=== PATIENT | male | born 1945 | race Two or more races ===

== ENCOUNTER 2019-05-02 02:24 | Inpatient (IN) | payer BC, OTHER ==
[~2019-05-02] VITALS: Ht 170.2 cm; Wt 89.4 kg
[2019-05-02] VITALS (7 sets, daily range): BP systolic 49–103; BP diastolic 26–50
--- NOTE | 2019-05-02 02:35 | NUR ---
BIB EMS C/O LOW O2 SAT, O2 SAT UPON ARRIVAL TO ER 95% RA/ RECEIVED PT AAOX4, REFUSED SALINE LOCK AT THIS TIME. PLACE PT ON CARDIAC MONITORING, CONTINUOUS POX. PENDING ER MD WYNNE.
--- NOTE | 2019-05-02 02:44 | NUR ---
ER MD AT BEDSIDE TO EVAL PT WITH ORDERS RECEIVED. NOTED PT HR 30'S-40'S, BP 67/47. PT AGREED TO SALINE LOCK AT THIS TIME. PT REMAINS PAIN FREE AT THIS TIME. WILL CONTINUE TO MONITOR PT CLOSELY.
[2019-05-02] MEDS ORDERED: IV NS 0.9% 500 ML BAG IV ONE ×2 (03:00→08:30)
[2019-05-02 03:11] LABS: BASOPHILS % (AUTO) 0.1 % (0.0-2.0); EOSINOPHILS % (AUTO) 0.1 % (0.0-6.0); HEMATOCRIT 22 % (39-51); HEMOGLOBIN 7.3 g/dL (13.5-17.5); LYMPHOCYTES # (AUTO) 0.3 /CMM (0.8-4.8); LYMPHOCYTES % (AUTO) 5.7 % (20.0-44.0); MEAN CORPUSCULAR HGB CONC 34 g/dl (31.0-36.0); MEAN CORPUSCULAR VOLUME 98 fL (80-96); MONOCYTES # (AUTO) 0.7 /CMM (0.1-1.30); MONOCYTES % (AUTO) 13.6 % (2.0-12.0); NEUTROPHILS # (AUTO) 3.9 /CMM (1.8-8.9); NEUTROPHILS % (AUTO) 80.5 % (43.0-81.0); PLATELET COUNT (AUTO) 174 /CMM (150-450); RED BLOOD CELL COUNT(AUTO) 2.22 MIL/uL (4.5-6.0); WHITE BLOOD COUNT (AUTO) 4.9 K/uL (4.3-11.0)
[2019-05-02 03:30] LABS: ALANINE AMINOTRANSFERASE 25 U/L (12-78); ALKALINE PHOSPHATASE 61 U/L (46-116); ASPARTATE AMINOTRANSFERASE 15 U/L (15-37); BILIRUBIN,DIRECT 0.1 mg/dL (0.0-0.2); BILIRUBIN,TOTAL 0.2 mg/dL (0.2-1.0); CALCIUM, SERUM 7.6 mg/dL (8.5-10.1); CARBON DIOXIDE 25 mmol/L (21-32); CHLORIDE 98 mmol/L (98-107); GLUCOSE 205 mg/dL (74-106); POTASSIUM 4.1 mmol/L (3.5-5.1); SODIUM SERUM 136 mmol/L (136-145); TOTAL PROTEIN, SERUM 4.2 g/dL (6.4-8.2)
[2019-05-02 03:31] LABS: ALBUMIN 1.3 g/dL (3.4-5.0); UREA NITROGEN, BLOOD 95 mg/dL (7-18)
--- NOTE | 2019-05-02 04:39 | NUR ---
PT AAOX4 NO ACUTE DISTRESS NOTED, RESP EVEN AND UNLABORED. PT REMAINS PAIN FREE AT THIS TIME. WILL CONTINUE TO MONITOR PT.
--- NOTE | 2019-05-02 06:05 | NUR ---
REPORT CALLED TO M/S ELDA OROSCO. WILL TRANSPORT PT TO ROOM 319-1.
--- NOTE | 2019-05-02 06:40 | NUR ---
TELE/RN ADMITTING NOTES: RECEIVED REPORT FROM ED ER NURSE. PATIENT ARRIVED TO THE UNIT AT 0640 VIA GURNEY UNDER ACLS PROTOCOL. A/OX4. VERBALLY RESPONSIVE AND ABLE TO MAKE NEEDS KNOWN. PALE LOOKING UPON ARRIVAL. BREATHING EVEN AND UNLABORED. IV PRESENT ON THE LEFT HAND 18G INTACT AND PATENT, FLUSHING WELL. NO OPEN WOUNDS. SKIN IS INTACT UPON ASSESSMENT. VITALS TAKEN BP:74/40. TEMP:97 O2 SAT OF 90. PLACED ON 2L OF OXYGEN VIA NC. ON TELE MONITOR WITH READING OF ST HR OF 118. NO COMPLAINS OF PAIN AT THIS TIME. ORIENTED TO UNIT AND STAFF. REFUSED SKIN ASSESSMENT. SAFETY MEASURES INITIATED. BED IN LOW, LOCKED POSITION WITH SR UP X2. PATIENT IS IN A CALM MOOD AND WANTS TO BE LEFT ALONE. PREFERS TO ANSWER QUESTIONS LATER. WILL ENDORSE TO MORNING SHIFT FOR NIVIA.
--- NOTE | 2019-05-02 07:09 | NUR ---
TELE/RN NOTES: EXPLAINED TO PT ABOUT ORDERS TO TRANSFUSE 1 UNIT PRBC. UNABLE TO OBTAIN CONSENT. PATIENT REFUSES BLOOD TRANSFUSION AND STATED "HE WANTS TO BE LEFT ALONE AND REST" WILL CONTINUE TO MONITOR.
--- NOTE | 2019-05-02 07:20 | NUR ---
TELE/RN CLOSING NOTES: REPORT GIVEN TO REMEDIOS FOR CONTINUITY OF CARE AND FURTHER ASSESSMENTS FOR ADMISSION.
--- NOTE | 2019-05-02 07:46 | NUR ---
ROTARY DRYER OPERATOR NOTES PATIENT RECEIVED RESTING INSIDE ROOM. SLEEPING, AROUSABLE THROUGH VERBAL AND TACTILE STIMULI. NO ACUTE DISTRESS. DENIES ANY PAIN OR DISCOMFORT. ADMITTED UNDER MEDICAL SUPERVISION OF DR RODRIGUEZ, AWARE OF PATIENT ARRIVAL. WITH ANTICIPATION FOR BLOOD TRANSFUSION 2 BUT PATIENT REFUSES TO GIVE CONSENT AT THIS TIME, RISKS AND BENEFITS EXPLAINED BUT TO NO AVAIL, PATIENT STRONGLY REFUSED. ON TELEMETRY, SCHOOL SECRETARY IN PLACE. ST 108. WILL COTNINUE TO MONITOR. BED LOCKED AND IN LOW POSITION. SIDE RAILS UP X 3. CALL LIGHT WITHIN EASY REACH
--- NOTE | 2019-05-02 08:10 | NUR ---
MS RN NOTES PATIENT WITH BLACK LIQUID BOWEL MOVEMENT. UNABLE TO OBTAIN SAMPLE AT THIS TIME BOWEL MOVEMENT ABSORBED BY DIAPER. DR RODRIGUEZ AWARE. WILL CONTINUE TO MONITOR
--- NOTE | 2019-05-02 08:14 | NUR ---
ASSEMBLER AND TESTER ELECTRONICS NOTES SEEN AND EXAMINED BY DR RODRIGUEZ. PATIENT AGREED TO HAVE BLOOD TRANSFUSION. VERIFIED INFORMED CONSENT OBTAINED BY MD FROM PATIENT AND WITNESSED BY STAFF. ALSO WITH NEW ORDER FROM DR RODRIGUEZ FOR NS 500 ML IV BOLUS X 1. ORDER NOTED AND CARRIED OUT. WILL CONTINUE TO MONITOR
[2019-05-02] MEDS ORDERED: ROSU40TA PO (08:17)
[2019-05-02] MEDS ORDERED: FINA5TAB11 PO (08:17)
[2019-05-02] MEDS ORDERED: INSU100V27 SQ (08:17)
[2019-05-02] MEDS ORDERED: INSU100I26 SQ (08:17)
[2019-05-02] MEDS ORDERED: QUET100T PO (08:17)
[2019-05-02] MEDS ORDERED: QUET200T PO (08:17)
[2019-05-02] MEDS ORDERED: PANT40TA2 PO (08:17)
[2019-05-02] MEDS ORDERED: NEBI5TAB8 PO (08:17)
[2019-05-02] MEDS ORDERED: ERGO500014 PO (08:17)
[2019-05-02] MEDS ORDERED: ARIP10TA9 PO (08:17)
[2019-05-02] MEDS ORDERED: PARO10TA86 PO (08:17)
[2019-05-02] MEDS ORDERED: TAMS-12 PO (08:17)
[2019-05-02] MEDS ORDERED: SENN-261 PO (08:17)
[2019-05-02] MEDS ORDERED: CALC667T2 PO (08:17)
[2019-05-02] MEDS ORDERED: FOLI0.8T2 PO (08:17)
[2019-05-02] MEDS ORDERED: ASPI-1169 PO (08:17)
--- NOTE | 2019-05-02 08:23 | NUR ---
JOINT YARNER/MED RECON MED-RECON UPDATED, LIST OBTAINED FROM [facility]. DR. RODRIGUEZ MADE AWARE WITH NEW ORDERS. PRIMARY NURSE AWARE.
[2019-05-02] MEDS ORDERED: BLOO-668 IN (08:30)
[2019-05-02 08:33] LABS: IRON, SERUM 24 ug/dl (50-175); TOTAL IRON BINDING CAPACITY 93 ug/dl (250-450)
[2019-05-02] MEDS ORDERED: TRANEXAMIC ACID 3,000 MG in SODIUM CHLORIDE IRRIG SOLUTION 70 ML IR ONE (09:00)
[2019-05-02] MEDS ORDERED: ASPIRIN 81 MG TAB.CHEW PO SCH (09:00)
[2019-05-02] MEDS: PIPERACILLIN /TAZOBACTAM 2.25 G in IV D5W 50 ML IV SCH ×2 (09:52→16:42)
[2019-05-02] MEDS: QUETIAPINE FUMARATE 100 MG TABLET PO SCH ×2 (10:03→21:28)
[2019-05-02] MEDS: ARIPIPRAZOLE 5 MG TABLET PO SCH (10:03)
[2019-05-02] MEDS: VIT B CMPLX 3/FA/VIT C/BIOTIN 1 TAB TABLET PO SCH (10:03)
[2019-05-02] MEDS: FINASTERIDE (5 MG) 5 MG TABLET PO SCH (10:04)
[2019-05-02] MEDS: PAROXETINE HCL 10 MG TABLET PO SCH ×2 (10:04→18:05)
[2019-05-02] MEDS: PANTOPRAZOLE 40 MG VIAL IV SCH (10:04)
--- NOTE | 2019-05-02 10:44 | NUR ---
MS RN NOTES DR RODRIGUEZ MADE AWARE OF ASPIRIN ORDER. WITH ORDER TO HOLD MEDICATION AT THIS TIME UNTIL FURTHER ORDERS. WILL CONTINUE TO MONITOR
[2019-05-02] MEDS: CALCIUM ACETATE 667 MG TABLET PO SCH ×2 (12:54→18:05)
--- NOTE | 2019-05-02 12:54 | NUR ---
MS RN NOTES WITH ORDER FROM DR MORTON FOR EPOGEN X 1 IV, VERBALIZED EPOGEN TO BE GIVEN WITH HD. NOTED AND CARRIED OUT. WILL CONTINUE TO MONITOR
[2019-05-02] MEDS ORDERED: Magnesium 1GM/D5W 100ML PREMIX 100 ML IV SCH (14:09)
--- NOTE | 2019-05-02 14:50 | NUR ---
MS RN NOTES DIALYSIS NURSE AT BEDSIDE, ONGOING DIALYSIS. INITIATED BLOOD TRANSFUSION, TO BE GIVEN DURING DIALYSIS. PATIENT TOLERATING PROCEDURE WELL. WILL CONTINUE TO MONITOR
[2019-05-02] MEDS ORDERED: EPOETIN ALFA (10,000 UNIT) 10,000 UNIT/ML VIAL IV ONE (15:00)
--- NOTE | 2019-05-02 15:06 | NUR ---
MS RN NOTES 1 UNIT PRBC GIVEN WITH DIALYSIS. NO REACTIONS NOTED AT THIS TIME.
[2019-05-02] MEDS ORDERED: ALBUMIN 25% 25 GM in PREMIX 1 EA IV PRN (15:30)
[2019-05-02 15:34] LABS: OCCULT BLOOD STOOL POSITIVE (NEGATIVE)
--- NOTE | 2019-05-02 17:10 | NUR ---
MS RN NOTES S/P HD, TOTAL OF 3 HOURS, NO OUTPUT PER HD RN. PATIENT TOLERATED PROCEDURE WELL. WILL CONTINUE TO MONITOR
[2019-05-02] MEDS ORDERED: INSULIN ASPART/LISPRO 100 UNIT/ML CARTRIDGE SQ PRN (17:30)
[2019-05-02] MEDS ORDERED: DEXTROSE 50%-WATER 50 ML DISP.SYRIN IV PRN (17:30)
--- NOTE | 2019-05-02 18:43 | NUR ---
MS RN NOTES PATIENT RESTING INSIDE ROOM. NO ACUTE DISTRESS. A/O X 3-4. DENIES ANY PAIN OR DISCOMFORT. PATIENT KEPT CLENA, DRY AND COMFORTABLE. SAFETY PRECAUTIONS IN PLACE. CONTINUE TO NOTE WITH BLACK LIQUID DIARRHEA, CLEANED AND CHANGED PATIENT PRN. WILL ENDORSE TO INCOMING SHIFT FOR NVIIA. BED LOCKED AND IN LOW POSITION. SIDE RAILS UP X 3. CALL LIGHT WITHIN EASY REACH
--- NOTE | 2019-05-02 20:09 | NUR ---
MS RN NOTES PATIENT ASLEEP IN BED WITH NO DISTRESS NOTED. CALL LIGHT WITHIN REACH. NO FACIAL GRIMACING OR GROANING TO INDICATE PAIN OR DISCOMFORT. PERIPHERAL LINES INTACT AND PATENT. RUC P.CATH IN PLACE WITH NO REDNESS, SWELLING, BLEEDING NOTED. STERILE DRESSING INTACT. BED IN LOW LOCK SETTING WITH BED ALARM ON AND FUNCTIONING PROPERLY. WILL CONTINUE TO MONITOR.
[2019-05-02] MEDS: ATORVASTATIN 40 MG TABLET PO SCH (21:28)
[2019-05-02] MEDS: TAMSULOSIN 0.4 MG CAP.SR.24H PO SCH (21:28)
[2019-05-02] MEDS: INSULIN GLARGINE, 100 UNIT/ML CARTRIDGE SQ SCH (21:29)
[2019-05-02] MEDS: SENNOSIDES 8.6 MG TABLET PO SCH (22:00)
[2019-05-03] MEDS: PIPERACILLIN /TAZOBACTAM 2.25 G in IV D5W 50 ML IV SCH (02:20)
--- NOTE | 2019-05-03 06:29 | NUR ---
MS RN NOTES PATIENT AWAKE IN BED WITH NO DISTRESS NOTED. CALL LIGHT WITHIN REACH. ALL DUE MEDS GIVEN ORDERED WITH NO ASE. NO C/O PAIN OR DISCOMFORT. PERIPHERAL LINES INTACT AND PATENT. RUC P.CATH IN PLACE WITH NO REDNESS, SWELLING, BLEEDING NOTED. STERILE DRESSING INTACT. BED IN LOW LOCK SETTING WITH BED ALARM ON AND FUNCTIONING PROPERLY. WILL ENDORSE TO ONCOMING SHIFT.
--- NOTE | 2019-05-03 07:29 | NUR ---
MS RN NOTES PATIENT RECEIVED IN BED REST, ALERT AND ORIENTED X 3. ON ROOM AIR, WITH NO RESPIRATORY DISTRESS PRESENT. SKIN WARM, DRY AND INTACT. IV ON RIGHT HAND 20 GAUGE AND LEFT AC 18 GAUGE. PATIENT ON CONTROL CARBOHYDRATE DIET. PATIENT AT RISKS FOR FALL, ENDORSED FALL PRECAUTIONS, BED IN THE LOWEST POSITION, BED LOCKED, BED ALARM ON, BILATERAL SIDE RAILS UP, AND CALL LIGHT WITHIN REACH. PROVIDED COMFORT MEASURES AND WILL CONTINUE TO MONITOR PATIENT.
[2019-05-03 07:59] LABS: BASOPHILS % (AUTO) 0.2 % (0.0-2.0); EOSINOPHILS % (AUTO) 0.2 % (0.0-6.0); HEMATOCRIT 27 % (39-51); HEMOGLOBIN 9.4 g/dL (13.5-17.5); LYMPHOCYTES # (AUTO) 0.2 /CMM (0.8-4.8); LYMPHOCYTES % (AUTO) 6.3 % (20.0-44.0); MEAN CORPUSCULAR HGB CONC 35 g/dl (31.0-36.0); MEAN CORPUSCULAR VOLUME 95 fL (80-96); MONOCYTES # (AUTO) 0.5 /CMM (0.1-1.30); MONOCYTES % (AUTO) 14.1 % (2.0-12.0); NEUTROPHILS % (AUTO) 79.2 % (43.0-81.0); PLATELET COUNT (AUTO) 117 /CMM (150-450); RED BLOOD CELL COUNT(AUTO) 2.86 MIL/uL (4.5-6.0); WHITE BLOOD COUNT (AUTO) 3.8 K/uL (4.3-11.0)
[2019-05-03 08:00] VITALS: BP 94/47
[2019-05-03 08:00] LABS: CALCIUM, SERUM 7.7 mg/dL (8.5-10.1); CARBON DIOXIDE 26 mmol/L (21-32); CHLORIDE 104 mmol/L (98-107); CREATININE 3.6 mg/dL (0.6-1.3); GLUCOSE 107 mg/dL (74-106); MAGNESIUM 1.7 mg/dL (1.8-2.4); POTASSIUM 3.8 mmol/L (3.5-5.1); SODIUM SERUM 140 mmol/L (136-145); UREA NITROGEN, BLOOD 70 mg/dL (7-18)
[2019-05-03] MEDS: BLOOD SUGAR DIAGNOSTIC 1 EACH STRIP IN SCH ×2 (08:00→16:24)
[2019-05-03 08:16] LABS: THYROID STIMULATING HORMONE 2.393 uIU/mL (0.358-3.74)
[2019-05-03] MEDS: CALCIUM ACETATE 667 MG TABLET PO SCH ×3 (08:48→17:19)
[2019-05-03] MEDS: ARIPIPRAZOLE 5 MG TABLET PO SCH (08:49)
[2019-05-03] MEDS: PANTOPRAZOLE 40 MG VIAL IV SCH (08:49)
[2019-05-03] MEDS: VIT B CMPLX 3/FA/VIT C/BIOTIN 1 TAB TABLET PO SCH (08:49)
[2019-05-03] MEDS: FINASTERIDE (5 MG) 5 MG TABLET PO SCH (08:49)
[2019-05-03] MEDS: QUETIAPINE FUMARATE 100 MG TABLET PO SCH ×2 (08:49→21:35)
[2019-05-03] MEDS: Magnesium 1GM/D5W 100ML PREMIX 100 ML IV SCH ×2 (08:50→10:17)
[2019-05-03] MEDS: PAROXETINE HCL 10 MG TABLET PO SCH ×2 (09:04→17:19)
[2019-05-03 16:00] VITALS: BP 118/72
[2019-05-03] MEDS: SOD FERRIC GLUC 125 MG in IV NS 0.9% 100 ML IV SCH (16:05)
--- NOTE | 2019-05-03 18:42 | NUR ---
MS RN NOTES PATIENT AWAKE IN BED. NO RESPIRATORY DISTRESS PRESENT. ALERT AND ORIENTED X 3. NO COMPLAINTS OF PAIN OR DISCOMFORT. PATIENT SKIN DRY, INTACT, AND DRY, IV ACCESS ON RIGHT AC 18 GAUGE, PATENT AND LEFT HAND 20 GAUGE PATENT. BED IN THE LOWEST POSITION, SEMI-FOWLERS, BILATERAL SIDE RAILS UP, BED LOCKED AND BED ALARM ON. CALL LIGHT WITHIN EASY REACH. WILL ENDORSE TO ONCOMING NURSE.
[2019-05-03 20:00] VITALS: BP 112/57
[2019-05-03] MEDS: TAMSULOSIN 0.4 MG CAP.SR.24H PO SCH (21:35)
--- NOTE | 2019-05-03 21:35 | NUR ---
ms christy initial notes received report from another nurse Dagoberto and checked the pt in his room , his awake and alert watching TV at this time, no signs of any distress noted. Routine meds given and blood sugar checked done 141, no signs of hyper glycemia noted. offered snacks and pt requested to have tuna sandwich and juice. will continue monitoring. place call light at reach.
[2019-05-03] MEDS: SENNOSIDES 8.6 MG TABLET PO SCH (21:43)
[2019-05-03] MEDS: ATORVASTATIN 40 MG TABLET PO SCH (21:45)
[2019-05-03] MEDS: INSULIN GLARGINE, 100 UNIT/ML CARTRIDGE SQ SCH (21:48)
--- NOTE | 2019-05-03 21:48 | NUR ---
ms harrison notes Lantus 16 units given vasiliy SQ on different site. snacks also served. reposition pt on sitting position for aspiration precaution. will continue monitoring. place call light at reach.
[2019-05-04] VITALS (11 sets, daily range): BP systolic 107–132; BP diastolic 48–87
--- NOTE | 2019-05-04 02:26 | NUR ---
MS CERTIFIED DIETARY MANAGER NOTES CHECKED PT HE'S SLEEPING COMFORTABLY IN BED WITHOUT ANY DISTRESS NOTED. KEPT HIM COMFORTABLE AND WARM CALL LIGHT AT REACH.
[2019-05-04 06:55] LABS: ALANINE AMINOTRANSFERASE 42 U/L (12-78); ALKALINE PHOSPHATASE 62 U/L (46-116); ASPARTATE AMINOTRANSFERASE 46 U/L (15-37); BILIRUBIN,TOTAL 0.5 mg/dL (0.2-1.0); CALCIUM, SERUM 7.9 mg/dL (8.5-10.1); CARBON DIOXIDE 26 mmol/L (21-32); CHLORIDE 102 mmol/L (98-107); CREATININE 4.2 mg/dL (0.6-1.3); GLUCOSE 76 mg/dL (74-106); MAGNESIUM 2.4 mg/dL (1.8-2.4); PHOSPHORUS 5.3 mg/dL (2.5-4.9); POTASSIUM 4.1 mmol/L (3.5-5.1); SODIUM SERUM 138 mmol/L (136-145); TOTAL PROTEIN, SERUM 4.3 g/dL (6.4-8.2); UREA NITROGEN, BLOOD 74 mg/dL (7-18)
--- NOTE | 2019-05-04 07:21 | NUR ---
Ms shoe stamper closing notes pt woke up and morning care done. stable vasiliy the night and slept well. no signs of any distress noted at this time. all due meds given and all needs met. kept him warm and comfortable at all times. place call light at reach . Endorse to am nurse.
[2019-05-04 07:57] LABS: ALBUMIN 1.4 g/dL (3.4-5.0)
--- NOTE | 2019-05-04 08:00 | NUR ---
MS/RN NOTE THE PATIENT IS RECEIVED IN BED. ALERT AND ORIENTED X3. IN ROOM AIR AND DENIES SOB. RESPIRATION REGULAR AND UNLABORED. ABDOMEN SOFT AND NON-DISTENDED. DENIES ANY PAIN OR DISCOMFORT. RAC G 18 PATENT AND LEFT HAND G 20 BOTH PATENT AND SALINE LOCKED. RUC PERMACATH PRESENT. PATIENT REMAINS OF ISOLATION RO R/O CDIFF. BED LOW AND LOCKED. SIDE RAILS UP X3. CALL LIGHT WITHIN REACH. WILL CONTINUE TO MONITOR.
[2019-05-04] MEDS: FINASTERIDE (5 MG) 5 MG TABLET PO SCH (09:19)
[2019-05-04] MEDS: PANTOPRAZOLE 40 MG VIAL IV SCH (09:19)
[2019-05-04] MEDS: ARIPIPRAZOLE 5 MG TABLET PO SCH (09:19)
[2019-05-04] MEDS: BLOOD SUGAR DIAGNOSTIC 1 EACH STRIP IN SCH ×2 (09:19→17:50)
[2019-05-04] MEDS: VIT B CMPLX 3/FA/VIT C/BIOTIN 1 TAB TABLET PO SCH (09:19)
[2019-05-04] MEDS: CALCIUM ACETATE 667 MG TABLET PO SCH ×3 (09:19→17:53)
[2019-05-04] MEDS: PAROXETINE HCL 10 MG TABLET PO SCH ×2 (09:20→17:00)
[2019-05-04] MEDS: QUETIAPINE FUMARATE 100 MG TABLET PO SCH ×2 (09:20→21:33)
[2019-05-04 10:11] LABS: BASOPHILS % (AUTO) 0.4 % (0.0-2.0); EOSINOPHILS % (AUTO) 0.9 % (0.0-6.0); HEMATOCRIT 23 % (39-51); HEMOGLOBIN 7.5 g/dL (13.5-17.5); LYMPHOCYTES # (AUTO) 0.4 /CMM (0.8-4.8); MEAN CORPUSCULAR HGB CONC 33 g/dl (31.0-36.0); MEAN CORPUSCULAR VOLUME 96 fL (80-96); MONOCYTES # (AUTO) 0.8 /CMM (0.1-1.30); MONOCYTES % (AUTO) 14.9 % (2.0-12.0); NEUTROPHILS # (AUTO) 4.1 /CMM (1.8-8.9); NEUTROPHILS % (AUTO) 76.8 % (43.0-81.0); PLATELET COUNT (AUTO) 119 /CMM (150-450); RED BLOOD CELL COUNT(AUTO) 2.34 MIL/uL (4.5-6.0); WHITE BLOOD COUNT (AUTO) 5.4 K/uL (4.3-11.0)
[2019-05-04 12:00] LABS: BAND % (MANUAL) 10 % (0.0-5.0); EOSINOPHILS % (MANUAL) 2 % (0-4); LYMPHOCYTES % (MANUAL) 7 % (16-48); MONOCYTES % (MANUAL) 13 % (0-11.0); MYELOCYTES % 1 % (0-0); NEUTROPHILS % (MANUAL) 66 (42-76); REACTIVE LYMPHOCYTES 1 % (0-0)
[2019-05-04] MEDS: SOD FERRIC GLUC 125 MG in IV NS 0.9% 100 ML IV SCH (13:34)
[2019-05-04] MEDS: INSULIN ASPART/LISPRO 100 UNIT/ML CARTRIDGE SQ PRN (17:50)
--- NOTE | 2019-05-04 19:05 | NUR ---
MS/RN NOTE THE PATIENT IS ALERT AND ORIENTED X3. IN ROOM AIR AND SATURATION IS AT 96%. DENIES SOB. RESPIRATION REGULAR AND UNLABORED. DENIES PAIN. THE PATIENT IN NO APPARENT DISTRESS. RAC G 18 PATENT AND SALINE LOCKED. LEFT HAND G 20 PATENT AND SALINE LOCKED. RUC PERMACATH PRESENT. PATIENT RECEIVED I UNIT PRBC. SUPERVISOR PLASTIC SHEETS IS ENDORSED TO ADMINISTER 2ND UNIT OF PRBC AND DO H/H CHECK AFTERWARD ORDERED. BED LOW AND LOCKED. SIDE RAILS UP X3. CALL LIGHT WITHIN REACH. WILL ENDORSE TO SUPERVISOR PLASTIC SHEETS.
--- NOTE | 2019-05-04 19:30 | NUR ---
MS GUS INITIAL NOTES RECEIVED REPORT FROM AM NURSE FABIOLA AND SEEN PT IN BED SITTING JUST ATE HIS DINNER, DENIES ANY PAIN OR ANY DISCOMFORT. PT IS ALSO AWARE THAT HE'S GETTING SECOND UNIT OF BLOOD THAT DIALYSIS NURSE WILL ADMINISTERED LATER WHILE DOING DIALYSIS. KEPT HIM WARM AND COMFORTABLE AT ALL TIMES. STILL ON ISOLATION PRECAUTION. WILL CONTINUE MONITORING.
--- NOTE | 2019-05-04 20:51 | NUR ---
ms programmer analyst notes blood transfusion started by dialysis nurse . Vital signs recorded per hospital protocol .pt is awake and alert not in any discomfort at this time. pt just stated i wants some sandwich.
--- NOTE | 2019-05-04 21:06 | NUR ---
ms christy notes' pt checked his awake and alert still on blood transfusion, no blood transfusion reaction .will continue monitoring. place call light at reach.
--- NOTE | 2019-05-04 21:24 | NUR ---
ms christy notes blood sugar checked done 78, lantus hold at this time. aware.
[2019-05-04] MEDS: TAMSULOSIN 0.4 MG CAP.SR.24H PO SCH (21:33)
[2019-05-04] MEDS: ATORVASTATIN 40 MG TABLET PO SCH (21:33)
[2019-05-04] MEDS: SENNOSIDES 8.6 MG TABLET PO SCH (21:33)
[2019-05-04] MEDS: INSULIN GLARGINE, 100 UNIT/ML CARTRIDGE SQ SCH (21:34)
--- NOTE | 2019-05-04 21:36 | NUR ---
ms christy notes pt is awake , still on blood transfusion. no signs of adverse reaction noted. will continue monitoring. pt still on dialysis.
--- NOTE | 2019-05-04 22:18 | NUR ---
ms newspaper managing editor notes blood transfusion done , no adverse reaction noted. pt awake and alert. still on dialysis. vital signs recorded. will continue monitoring.
[2019-05-04 23:47] LABS: HEMOGLOBIN 10.3 g/dL (13.5-17.5)
--- NOTE | 2019-05-05 | NUR ---
ms christy notes pt sleeping at this time without any acute distress noted. kept him warm and comfortable at all times. place call light at reach.
--- NOTE | 2019-05-05 07:00 | NUR ---
ms telegraph dispatcher closing notes pt awake and alert just finished using bathroom and have bowels. no signs of any distress noted. slept well and stable vasiliy the night. all due meds given and all needs met. kept him warm and comfortable at all times. place call light at reach. endorse to am nurse for continuity of care. place call light at reach.
--- NOTE | 2019-05-05 07:10 | NUR ---
RN OPENING NOTES RECEIVED PATIENT IN BED RESTING. A/OX3, ABLE TO MAKE NEEDS KNOWN. NOT IN ANY FORM OF DISTRESS. NO SOB. DENIED PAIN OR DISCOMFORT AT THIS TIME. IV ACCES INTACT AND PATENT. NO REDNESS, NO INFILTRATION. KEPT PATIENT SAFE AND COMFORTABLE. BED IN LOW, LOCKED POSITION, SIDERAILS UPX2,CALL LIGHT IN REACH. WILL CONT TO MONITOR ACCORDINGLY.
[2019-05-05 07:16] LABS: EOSINOPHILS % (AUTO) 1.1 % (0.0-6.0); HEMATOCRIT 29 % (39-51); HEMOGLOBIN 9.9 g/dL (13.5-17.5); LYMPHOCYTES # (AUTO) 0.5 /CMM (0.8-4.8); LYMPHOCYTES % (AUTO) 8.6 % (20.0-44.0); MEAN CORPUSCULAR HGB CONC 34 g/dl (31.0-36.0); MEAN CORPUSCULAR VOLUME 96 fL (80-96); MONOCYTES # (AUTO) 0.8 /CMM (0.1-1.30); MONOCYTES % (AUTO) 13.9 % (2.0-12.0); NEUTROPHILS # (AUTO) 4.2 /CMM (1.8-8.9); NEUTROPHILS % (AUTO) 76.4 % (43.0-81.0); PLATELET COUNT (AUTO) 120 /CMM (150-450); RED BLOOD CELL COUNT(AUTO) 3.07 MIL/uL (4.5-6.0); WHITE BLOOD COUNT (AUTO) 5.5 K/uL (4.3-11.0)
[2019-05-05 07:30] LABS: CALCIUM, SERUM 7.7 mg/dL (8.5-10.1); CARBON DIOXIDE 30 mmol/L (21-32); CHLORIDE 105 mmol/L (98-107); CREATININE 3.2 mg/dL (0.6-1.3); GLUCOSE 124 mg/dL (74-106); POTASSIUM 3.6 mmol/L (3.5-5.1); SODIUM SERUM 142 mmol/L (136-145); UREA NITROGEN, BLOOD 43 mg/dL (7-18)
[2019-05-05 07:55] VITALS: BP 108/46
[2019-05-05] MEDS: BLOOD SUGAR DIAGNOSTIC 1 EACH STRIP IN SCH ×2 (08:25→17:16)
[2019-05-05] MEDS ORDERED: ERGOCALCIFEROL (VITAMIN D 2) 50,000 UNIT CAPSULE PO SCH (08:30)
[2019-05-05] MEDS: QUETIAPINE FUMARATE 100 MG TABLET PO SCH ×2 (08:34→22:27)
[2019-05-05] MEDS: VIT B CMPLX 3/FA/VIT C/BIOTIN 1 TAB TABLET PO SCH (08:35)
[2019-05-05] MEDS: ARIPIPRAZOLE 5 MG TABLET PO SCH (08:35)
[2019-05-05] MEDS ORDERED: PANT40TA2 PO (08:35)
[2019-05-05] MEDS: CALCIUM ACETATE 667 MG TABLET PO SCH ×3 (08:35→17:20)
[2019-05-05] MEDS: PAROXETINE HCL 10 MG TABLET PO SCH ×2 (08:36→17:20)
[2019-05-05] MEDS: FINASTERIDE (5 MG) 5 MG TABLET PO SCH (08:36)
[2019-05-05] MEDS: PANTOPRAZOLE 40 MG VIAL IV SCH (08:37)
[2019-05-05 13:11] LABS: HEMOGLOBIN 9.9 g/dL (13.5-17.5)
[2019-05-05] MEDS: SOD FERRIC GLUC 125 MG in IV NS 0.9% 100 ML IV SCH (15:56)
[2019-05-05 16:00] VITALS: BP 121/57
[2019-05-05] MEDS: INSULIN ASPART/LISPRO 100 UNIT/ML CARTRIDGE SQ PRN (17:18)
--- NOTE | 2019-05-05 19:30 | NUR ---
RN CLOSING NOTES PATIENT IN STABLE CONDITION. ALL NEED ATTENDED AND PROVIDED. ALL DUE MEDICATIONS GIVEN ORDERED. KEPT PATIENT SAFE AND COMFORTABLE. BED IN LOW/LOCKED POSITION, SIDERAILS UPX2, CALL LIGHT IN REACH. ENDORSED ACCORDINGLY.
--- NOTE | 2019-05-05 19:45 | NUR ---
ms christy initial notes received report from am nurse and checked the patient . he awake and alert sitting on his chair. No SOB noted , denies any pain or any discomfort. he only requested have sandwich later after blood sugar check. kept him warm and comfortable at all times. encourage him to used the call light if he needs some help or assistance will continue monitoring. place call light at reach.
[2019-05-05 20:00] VITALS: BP 106/53
--- NOTE | 2019-05-05 21:27 | NUR ---
ms harrison notes after the briefcase sewer spoke to pt sister , pt will stayed overnight and will follow up in the morning. MD goode.
--- NOTE | 2019-05-05 21:30 | NUR ---
ms harrison notes Dr Diego called and he told me if the pt decided to have EGD done let the charge nurse call who ever the GI half section ironer .
[2019-05-05] MEDS: SENNOSIDES 8.6 MG TABLET PO SCH (22:00)
[2019-05-05] MEDS: INSULIN GLARGINE, 100 UNIT/ML CARTRIDGE SQ SCH (22:00)
[2019-05-05] MEDS: ATORVASTATIN 40 MG TABLET PO SCH (22:27)
[2019-05-05] MEDS: TAMSULOSIN 0.4 MG CAP.SR.24H PO SCH (22:28)
--- NOTE | 2019-05-05 22:51 | NUR ---
ms christy notes pt awake and alert , routine meds given and blood sugar 65, oranges juice served and tuna sandwich per pt requested. Notified Dr Diego . marbellatus hold per level. pt is awake and alert no signs of hypo glycemia noted. will continue monitoring.
--- NOTE | 2019-05-06 02:40 | NUR ---
ms general counselor notes pt sleeping at this time without any acute distress noted. breathing even and non-labored. kept him warm and comfortable at all times. will continue monitoring. place call light at reach.
--- NOTE | 2019-05-06 07:27 | NUR ---
MS PARKING METER INSTALLER CLOSING NOTES PT REMAINS RESTING BUT AROUSE TO TOUCH, DENIES ANY PAIN OR ANY DISCOMFORT. ALL DUE MEDS GIVEN AND ALL NEEDS MET. PT STABLE SILVIA THE NIGHT. ENDORSE TO AM NURSE.
[2019-05-06] MEDS: BLOOD SUGAR DIAGNOSTIC 1 EACH STRIP IN SCH ×2 (07:30→16:30)
--- NOTE | 2019-05-06 08:00 | NUR ---
MS RN OPENING NOTES Received Patient awake and resting in bed. A/O x 4, Uzbek speaking. VS stable with no acute distress. Breathing even and unlabored on room air with no respiratory distress. Denies pain. No signs and symptoms of pain. 18g PIV on RAC clean, intact, patent and flushing well. Safety precautions in place. Bed locked and set to lowest position with side rails x 2 up. All needs rendered at this time. Call light within reach. Will continue to monitor.
[2019-05-06] MEDS: VIT B CMPLX 3/FA/VIT C/BIOTIN 1 TAB TABLET PO SCH (08:47)
[2019-05-06] MEDS: PANTOPRAZOLE 40 MG VIAL IV SCH (08:47)
[2019-05-06] MEDS: CALCIUM ACETATE 667 MG TABLET PO SCH ×3 (08:47→17:47)
[2019-05-06] MEDS: PAROXETINE HCL 10 MG TABLET PO SCH ×2 (08:48→17:47)
[2019-05-06] MEDS: FINASTERIDE (5 MG) 5 MG TABLET PO SCH (08:49)
[2019-05-06] MEDS: QUETIAPINE FUMARATE 100 MG TABLET PO SCH (08:49)
[2019-05-06] MEDS: ARIPIPRAZOLE 5 MG TABLET PO SCH (08:50)
[2019-05-06] MEDS: INSULIN ASPART/LISPRO 100 UNIT/ML CARTRIDGE SQ PRN ×2 (08:59→18:23)
[2019-05-06 09:28] VITALS: BP 113/57
[2019-05-06] MEDS: SOD FERRIC GLUC 125 MG in IV NS 0.9% 100 ML IV SCH (14:16)
[2019-05-06 16:25] VITALS: BP 113/64
--- NOTE | 2019-05-06 19:39 | NUR ---
MS CUSTOMER PROJECT MANAGER NOTES Patient discharged for [place] in the [facility] at this time. Patient in stable condition. VS stable with no acute distress. Breathing even and unlabored on room air with no respiratory distress. Denies pain. No signs and symptoms of pain. Skin intact. Medication reconciliation and discharge orders reviewed and explained to Patient. Patient verbalized understanding. All belongings with Patient. Patient will follow up with PCP. Patient picked up by ambulance transport. Addendum: 05/06/19 at 1942 by ANA LUISA HWANG RN Report given to Chioma WEBER
--- NOTE | 2019-05-10 11:59 | NUR ---
BUZZ received a call from [email or web address] ANCELMO Loza requesting address to where pt. was discharge. MOUNTER SOUSAPHONES gave YOVANI Loza the requested information.
== END 2019-05-06 19:35 | DRG 377 ==
LOC: ER 02:25 → TELE 05:55 → MED 10:26
PROVIDERS: ADMIT Internal Medicine; ATTEND Internal Medicine
PROC: 30233P1 Transfusion of Nonautologous Frozen Red Cells into Peripheral Vein, Percutaneous Approach (ICD-10-PCS; principal; 2019-05-02)
PROC: 5A1D70Z Performance of Urinary Filtration, Intermittent, Less than 6 Hours Per Day (ICD-10-PCS; 2019-05-02)
PROC: 5A1D70Z Performance of Urinary Filtration, Intermittent, Less than 6 Hours Per Day (ICD-10-PCS; 2019-05-04)
PROC: 5A1D70Z Performance of Urinary Filtration, Intermittent, Less than 6 Hours Per Day (ICD-10-PCS; 2019-05-06)
DX: K92.2 Gastrointestinal hemorrhage, unspecified (principal); N18.6 End stage renal disease; E46 Unspecified protein-calorie malnutrition; I12.0 Hypertensive chronic kidney disease with stage 5 chronic kidney disease or end stage renal disease; I95.9 Hypotension, unspecified; E11.22 Type 2 diabetes mellitus with diabetic chronic kidney disease; E86.0 Dehydration; E78.5 Hyperlipidemia, unspecified; Z99.2 Dependence on renal dialysis; D53.9 Nutritional anemia, unspecified; M89.9 Disorder of bone, unspecified; N40.0 Benign prostatic hyperplasia without lower urinary tract symptoms; E86.9 Volume depletion, unspecified; M89.8X9 Other specified disorders of bone, unspecified site; Z66 Do not resuscitate
CPT/HCPCS: 36415; 71045-TC; 80048-TC; 80053-TC; 80076-TC; 82272-TC; 82962-TC; 83540-TC; 83735-TC; 83970; 84100-TC; 84443-TC; 84484-TC; 85025-TC; 85027-TC; 86706; 86850-TC; 86921-TC; 87081-TC; 87340; 89055; 90935-TC; 97116-TC; 97530-TC; A4216; C9113; G0378; J0885; J1815; J2543; J2916; J3475; J7030; J7040; J7050; J7060; P9016-BL; P9047